=== PATIENT | male | born 1960 | race African-American/Black ===

== ENCOUNTER 2021-08-21 16:30 | Emergency (ER) | payer OTHER ==
[~2021-08-21] VITALS: Ht 188 cm; Wt 115.7 kg
[2021-08-21 16:55] VITALS: BP 156/79
--- NOTE | 2021-08-21 17:00 | NUR ---
PT TO WAIT IN LOBBY
[2021-08-21] MEDS ORDERED: ACET-8386 PO (17:48)
--- NOTE | 2021-08-21 18:05 | NUR ---
NO NURSING INTERVENTIONS IMPLEMENTED
[2021-08-21 18:06] VITALS: BP 156/79
--- NOTE | 2021-08-21 18:06 | NUR ---
Patient discharged with v/s stable. Written and verbal after care instructions given and explained. Patient alert, oriented and verbalized understanding of instructions. Ambulatory with steady gait. All questions addressed prior to discharge. ID band removed. Patient advised to follow up with PMD. Rx of HYDROCODONE/ACETAMINOPHEN given. Patient educated on indication of medication including possible reaction and side effects. Opportunity to ask questions provided and answered.
== END 2021-08-21 18:06 | disposition home or self-care (01) ==
LOC: MED 16:30
DX: M54.2 Cervicalgia (principal); M54.5 Low back pain; G89.29 Other chronic pain; E11.9 Type 2 diabetes mellitus without complications; I10 Essential (primary) hypertension; Z79.899 Other long term (current) drug therapy
CPT/HCPCS: 99283